=== PATIENT | female | born 1955 | race Caucasian/White ===

== ENCOUNTER 2020-09-25 14:26 | Emergency (ER) | payer MEDICARE, OTHER ==
[~2020-09-25] VITALS: Ht 160 cm; Wt 93.0 kg
[2020-09-25 14:40] VITALS: BP 200/119
--- NOTE | 2020-09-25 15:42 | RAD ---
Right hip 2 views with one view pelvis. HISTORY: Pain after a fall Single view was taken of the pelvis. Pelvis is intact without acute fracture. There is mild arthritis at the left hip. There is degenerative disc disease and degenerative changes in lumbar spine. AP and lateral views were taken of the right hip. There is evidence of osteoarthritis with spurring o n the femoral head. There is no acute hip fracture. IMPRESSION: 1. Arthritis right hip. 2. No acute right hip fracture. 3. No acute pelvic fracture. Electronically signed by: Weston Escobar MD (09/25/2020 3:39 PM) [id number]
--- NOTE | 2020-09-25 15:50 | ED.ADGEN ---
Past Medical History Past Medical History: CVA, Diabetes-Type II, Hypertension, GA Additional Past Medical Histor: LUPUS Past Surgical History: Other Additional Past Surgical Histo: HEART STENTS PLACED, LEFT ARM AND ELBOW SURGERY Smoking Status: Former Smoker Alcohol Use: None General Adult EDM: Chief Complaint: MECHANICAL FALL HPI: HPI: Patient is a 64 year old female who presents to the emergency department with complaints of right-sided back pain and right hip pain after a fall today while shopping. Patient reports that she fell onto her right side and landed on her right arm elbow, shoulder, and right hip. Patient reports abrasions to her lateral right elbow and her lateral right wrist, she denies any numbness, tingling, or decreased range of motion of her right shoulder, elbow, or wrist. Patient denies any bony tenderness of her right upper extremity, she complains of right-sided mid to lower back pain but denies any bony tenderness. She also complains of pain in her right hip with weightbearing but denies any shortening or rotation of the affected extremity. She currently rates her pain a 5 out of 10 on the pain scale, she denies any alleviating factors. Patient states that the cart was somehow pushed into her and that is what caused her fall she denies any chest pain, syncope, or dizziness. Review of Systems: Review of Systems: Complete ROS is negative unless otherwise noted in HPI. Allergies: Allergies: Allergies Coded Allergies Type Severity Reaction Last Updated Verified Histamine H2 Inhibitors Allergy Unknown 09/25/20 Yes Sulfa (Sulfonamide Antibiotics) Allergy Unknown 09/25/20 Yes shellfish derived Allergy Unknown 09/25/20 Yes shrimp Allergy Unknown 09/25/20 Yes Physical Exam: PE: See Above Constitutional: Well developed, well nourished, no acute distress, non-toxic appearance. [] HENT: Normocephalic, atraumatic, bilateral external ears normal, nose normal. [] Eyes: PERRLA, EOMI, conjunctiva normal, no discharge. [] Neck: Normal range of motion, no stridor. [] Cardiovascular:Heart rate regular rhythm Lungs & Thorax: Respirations even and unlabored, no retractions, no respiratory distress Back: No bony tenderness, crepitus, or step-off; right thoracic and lumbar paraspinal tenderness to palpation, palpable muscle spasms Skin: Warm, dry; abrasions with no visible foreign bodies, no active bleeding noted to the lateral right elbow and lateral right wrist Extremities: Right shoulder: Nontender to palpation, no crepitus, no obvious deformity, no cyanosis, ROM intact, no edema. Right elbow: Nontender to palpation, no crepitus, no obvious deformity, no cyanosis, ROM intact, 1+ localized edema laterally Right wrist: Nontender to palpation, no crepitus, no obvious deformity, no cyanosis, ROM intact, no edema. [] Neurologic: Alert and oriented X 3, normal motor, normal sensory no focal deficits noted. [] Psychologic: Affect normal, judgement normal, mood normal. [] Current Patient Data: Vital Signs: Vital Signs Date Time Temp Pulse Resp B/P (MAP) Pulse Ox O2 Delivery O2 Flow Rate FiO2 09/25/20 14:40 96.4 85 12 200/119 (146) 95 Room Air 96.4 EKG: EKG: [] Heart Score: C/O Chest Pain: No Risk Factors: Risk Factors: DM, Current or recent (<one month) smoker, HTN, HLP, family history of CAD, obesity. Risk Scores: Score 0 - 3: 2.5% MACE over next 6 weeks - Discharge Home Score 4 - 6: 20.3% MACE over next 6 weeks - Admit for Clinical Observation Score 7 - 10: 72.7% MACE over next 6 weeks - Early Invasive Strategies Radiology/Procedures: Radiology/Procedures: PROCEDURE: HIP RIGHT 2V WITH PELVIS Right hip 2 views with one view pelvis. HISTORY: Pain after a fall Single view was taken of the pelvis. Pelvis is intact without acute fracture. There is mild arthritis at the left hip. There is degenerative disc disease and degenerative changes in lumbar spine. AP and lateral views were taken of the right hip. There is evidence of osteoarthritis with spurring on the femoral head. There is no acute hip fracture. IMPRESSION: 1. Arthritis right hip. 2. No acute right hip fracture. 3. No acute pelvic fracture. Electronically signed by: Weston Escobar MD (09/25/2020 3:39 PM) [id number][] Course & Med Decision Making: Course & Med Decision Making Pertinent Labs and Imaging studies reviewed. (See chart for details) [] Violeta Disclaimer: Dragmumtaz Disclaimer: This electronic medical record was generated, in whole or in part, using a voice recognition dictation system. Departure Departure Impression: Primary Impression: Muscle strain of right upper back Additional Impressions: Strain of muscle and tendon of back wall of thorax, initial encounter Pain in right paraspinal region Fall from standing Disposition: 01 DC HOME SELF CARE/HOMELESS Condition: STABLE Referrals: LING VARGAS (PCP) Patient Instructions: Back Pain, Adult, [id number], Low Back Strain with Rehab[facility] Additional Instructions: Fill the prescription(s) and use as directed. You may also take Tylenol or ibuprofen as needed for pain. Apply ice for to sore areas for the first 48 hours as needed for comfort, then apply ice or heat as needed for comfort.. Activity as tolerated. Follow up with your primary care doctor this week if symptoms persist, return to the ER if symptoms worsen or you develop a fever. Scripts Cyclobenzaprine Hcl (CYCLOBENZAPRINE HCL) 10 Mg Tablet 0.5-1 TAB PO TID PRN for MUSCLE PAIN for 10 Days, #20 TAB 0 Refills Prov: YOEL FAIRCHILD APRN 09/25/20 Problem Qualifiers Primary Impression: Muscle strain of right upper back Encounter type: initial encounter Qualified Codes: S29.012A - Strain of muscle and tendon of back wall of thorax, initial encounter Additional Impressions: Fall from standing Encounter type: initial encounter Qualified Codes: W19.XXXA - Unspecified fall, initial encounter YOEL FAIRCHILD PHYSICAL EDUCATION PROFESSOR Sep 25, 2020 15:50
[2020-09-25] MEDS ORDERED: CYCL10TA2 PO (16:32)
== END 2020-09-25 16:45 | disposition home or self-care (01) ==
LOC: ER 14:26
DX: S29.012A Strain of muscle and tendon of back wall of thorax, initial encounter (principal); M25.551 Pain in right hip; E11.9 Type 2 diabetes mellitus without complications; I10 Essential (primary) hypertension; I25.2 Old myocardial infarction; Z87.891 Personal history of nicotine dependence; Z98.890 Other specified postprocedural states; Z86.73 Personal history of transient ischemic attack (TIA), and cerebral infarction without residual deficits; W18.39XA Other fall on same level, initial encounter; Y93.89 Activity, other specified; Y92.89 Other specified places as the place of occurrence of the external cause; Y99.8 Other external cause status
CPT/HCPCS: 73502; 99284